=== PATIENT | female | born 1950 | race Caucasian/White ===

== ENCOUNTER → 2019-02-01 | Day surgery (SDC) | payer MEDICARE ==
[~2019-02-01] MED LIST: *PACU ONLY* KETAMINE HCL 10 MG/ML (20ML) VIAL IV ONE; ACETAMINOPHEN 1,000 MG/100 ML BTL IVPB ONE; BUPIVACAINE 0.5% W/EPI MPF 30 ML VIAL SQ ONE; CEFAZOLIN 1G VIAL IR ONE; FAMOTIDINE 20MG TABLET PO ONE; HYDROCODONE/APAP 7.5/325MG TABLET PO ONE; LIDOCAINE 1% W/EPI 1:100,000 MDV 20 ML VIAL SQ ONE; LIDOCAINE 2% MDV (20MG/ML) 20ML VIAL IV ONE; METOCLOPRAMIDE 10 MG TABLET PO ONE; PROPOFOL 10 MG/ML VIAL IV ONE; RINGERS SOLUTION,LACTATED 1,000 ML IV ONE; VANCOMYCIN 1GM/200ML PREMIX 1 GM/200 ML PIGGYBACK IVPB ONE
--- NOTE | 2019-02-01 06:23 | History and Physical - [facility] ---
CHIEF COMPLAINT/HISTORY OF CHIEF COMPLAINT: This patient with a history of an intractable lumbar radiculopathy had a spinal cord stimulator implant on 06/30/17. Although the system appeared to help over time this system has failed to appreciably control pain. She was given the option to revise or replace and she opted to remove. PAST MEDICAL HISTORY: Hypothyroidism and hypertension. PAST SURGICAL HISTORY: Hysterectomy. MEDICATIONS ON ADMISSION: List to be provided. ALLERGIES: TETANUS. FAMILY/PSYCHOSOCIAL HISTORY: Social history - Caffeine. Family history - Thyroid disease, diabetes, coronary artery disease, hypertension, and cancer. SYSTEMS REVIEW: The patient is appropriate in no acute distress. The remainder of the systems review is positive for glasses, chronic head and neck pain, degenerative arthritis, and depression. PHYSICAL EXAMINATION: Height is 5'2", weight is 200 pounds. No vital signs. HEENT: Within normal limits. LUNGS: Clear. HEART: Rapid and regular. ABDOMEN: Nontender. MUSCULOSKELETAL: Examination of the musculoskeletal system shows the incisional site for the leads approximating the T12-L1 junction. There is an incisional site at the left posterior gluteal margin for the generator, all incisions are intact. The underlying pain pattern is low back and bilateral lower extremity. NEUROLOGIC: Cranial nerves are intact. IMPRESSION: 1. LUMBAR RADICULOPATHY, ICD-10 CODE M54.16 AND M54.17. 2. SPINAL CORD STIMULATOR INTERNAL GENERATOR NONFUNCTIONAL. PLAN: The patient is here for removal of two stimulators and internal generator on an outpatient basis. The potential risks, side effects, and complications have all been reviewed and discussed. JOB NUMBER: [id number] MTDD
--- NOTE | 2019-02-01 09:32 | Operative Note - [facility] ---
DATE OF SURGERY: 02/01/2019 PREOPERATIVE DIAGNOSIS: 1. LUMBAR RADICULOPATHY, ICD-10 CODE M54.16 AND M54.17. 2. SPINAL CORD STIMULATOR TWO LEADS INTERNAL GENERATOR. OPERATION: FLUOROSCOPICALLY GUIDED INCISION, SUBCUTANEOUS DISSECTION, AND REMOVAL OF TWO SPINAL CORD STIMULATORS AND INTERNAL GENERATOR. SURGEON: Musa De Leon D.O. ANESTHESIA: Local sedation. ANESTHESIA PROVIDER: Cheryle Herrera CRNA INDICATION: This patient presents with history of intractable lumbar radiculopathy. A series of cardiac and valvular problems are requiring MRI imaging which by request will require removal of the device. PROCEDURE: Intravenous line, vital sign monitoring, IV sedation, prepped and draped, sterile technique. Under imaging the two spinal cord stimulators midline T11-T12 marked, skin infiltrated, incision made, subcutaneous dissection was conducted to the incision pouch which was opened, suture removed leads and anchors removed intact. At the left posterior gluteal margin generator pouch the skin was infiltrated, incision made and subcutaneous dissection was conducted to the generator pouch. The generator was exteriorized and all connections were removed. Electrodes are accounted for. Antibiotic irrigation, Bovie for hemostasis. The incisions were closed using Stratafix suture 2-0 fascia, 3-0 skin and Dermabond closure. She was transferred to the Recovery Room stable. No side effects from the procedure sedation. DISCHARGE INSTRUCTIONS: 1. The sites are to remain clean and dry. No showering or bathing in any way that would disrupt the dressings. If it happens contact the clinic. 2. Standard medications resumed including antibiotic Levaquin 500 mg once a day for fourteen days. 3. Office to contact the patient in 12-24 hours to set up a time in 7-10 days for us to evaluate the sites. Until then her activities should stay low and controlled. All other instructions are provided, numbers to contact if problems given. She was then discharged. JOB NUMBER: [id number] MTDD
== END | disposition home or self-care (01) ==
LOC: SUR 06:03
PROVIDERS: ATTEND Pain Medicine Interventional Pain Medicine
DX: M54.16 Radiculopathy, lumbar region (principal); M54.17 Radiculopathy, lumbosacral region; E11.9 Type 2 diabetes mellitus without complications; Z79.4 Long term (current) use of insulin; I10 Essential (primary) hypertension; Z79.01 Long term (current) use of anticoagulants; Z95.5 Presence of coronary angioplasty implant and graft; R42 Dizziness and giddiness; E03.9 Hypothyroidism, unspecified; E78.00 Pure hypercholesterolemia, unspecified; K21.9 Gastro-esophageal reflux disease without esophagitis; Z98.61 Coronary angioplasty status
CPT/HCPCS: J0690; J3370; J7120